=== PATIENT | female | born 2005 | race Caucasian/White ===

== ENCOUNTER 2023-09-12 13:40 | Emergency (ER) | payer SELFPAY ==
[2023-09-12 13:41] VITALS: BP 119/75; PULSE 85; RESP 18; TEMP 36.8; O2SAT 100; BMI 22.3
--- NOTE | 2023-09-12 13:47 | ED_ITS ---
Discharge Plan Disposition Patient Disposition: Home, Self-Care Condition: Good Referrals Follow up/Referrals: Jessica Roman [Primary Care Provider] - See instructions Activity Restrictions/Add. Instructions Additional Instructions/Restrictions: Take tylenol or ibuprofen for pain or fever. Follow up with your regular doctor for a recheck within the next 48 to 72 hours. GO TO THE ER FOR ANY WORSENING SYMPTOMS Clinical Impressions Clinical Impression: Facial trauma, Closed head injury Instructions Patient Instructions: DI for Closed Head Injury Discharge ED Provider: Roland Saab [facility] General Stated complaint: AO 09/10 hit on left jaw with ball Time Seen by Provider: 09/12/23 13:47 History of Present Illness Provider Complaint: She states that she was hit by a softball on her left jaw yesterday. The ball was moving very fast. She states that since then she has had left jaw pain. She denies any loss of consciousness. She states that it does to hurt to open and close her mouth, but she denies any popping of her jaw. She denies any injury to her teeth. She denies any neck pain. Related Data Allergies Allergy/AdvReac Type Severity Reaction Status Date / Time No Known Allergies Allergy Verified 09/12/23 14:02 [facility] Disclaimer: The information contained in this section may have been updated after the patient was seen, as this information can be updated by other users. Social History Smoking Status: Never smoker alcohol intake: never current occupational status: other Travel in the last 8 weeks: None ROS Obtained: Yes All systems reviewed & no additional complaints except as documented Constitutional Constitutional: Denies chills, Denies fever(s) and Denies headache(s) Eyes Eyes: Denies eye discharge ENT Ears, Nose, Mouth, and Throat: Denies dizziness, Denies otalgia, Denies headache(s), Denies neck pain, Denies sore throat and Denies vertigo Cardiovascular Cardiovascular: Denies chest pain and Denies syncope Respiratory Respiratory: Denies shortness of breath, Denies chest congestion, Denies cough, Denies stridor and Denies wheezing Gastrointestinal Gastrointestingal: Denies nausea or vomiting Musculoskeletal Musculoskeletal: Reports system reviewed and no additional complaints, except as documented, Denies arthralgias, Denies back pain, Denies deformity and Denies neck pain Integumentary/Breasts Skin/Breast: Denies rash Neurologic Neurologic: Denies dizziness, Denies headache(s), Denies paresthesias, Denies syncope and Denies vertigo Allergic/Immunologic Allergic/Immunologic: Denies wheezing Physical Exam General General appearance: alert and in no apparent distress Head Head exam: atraumatic, normocephalic, normal inspection and other (no clicking or popping felt when opening and closing her jaw. ) Eye Eye exam: Present normal appearance, PERRL and EOMI ENT ENT exam: Present normal exam, normal oropharynx, mucous membranes moist, TM's normal bilaterally and normal external ear exam Expanded ENT Exam Nose exam: Absent sinus tenderness Nasal speculum exam: Bilateral: normal Mouth exam: Present normal external inspection and tongue normal; Absent drooling or lip swelling Teeth exam: Present normal inspection; Absent dental caries, fractured tooth #, dental tenderness # or gingival swelling Throat exam: Present normal inspection Neck Neck exam: Present normal inspection, full ROM and trachea midline; Absent tenderness, meningismus or lymphadenopathy Chest Chest inspection: Present normal inspection and symmetric chest wall rise; Absent tenderness Respiratory Respiratory exam: Present normal lung sounds bilaterally; Absent respiratory distress Cardiovascular Cardiovascular exam: Present regular rate and normal rhythm; Absent JVD Abdominal Exam Abdominal exam: Present soft and normal bowel sounds; Absent distention, tender ness or guarding Extremities Exam Extremities exam: Present normal inspection, full ROM and normal capillary refill; Absent calf tenderness Back Exam Back exam: Present normal inspection; Absent tenderness Neurological Exam Neurological exam: Present alert and oriented X3 Psychiatric Psychiatric exam: Present normal affect and normal mood Skin Skin exam: Present warm, dry, intact and normal color Lymphatic Lymphatic Findings: no adenopathy Medical Decision Making Medical Records Medical records reviewed: No I reviewed the patient's medical records. Greg Inquiry Pt receiving controlled substance: No Radiology Data #1: Image(s): Other (facial bones) Image Reviewed: Yes I reviewed the patient's radiology image and Yes I have reviewed radiologist's interpretation Preliminary Findings: Normal/NAD PROCEDURE INFORMATION: Exam: XR Facial Bones, Minimum of 3 Views, Complete Exam date and time: 09/12/2023 2:02 PM Age: 18 years old Clinical indication: Maxilla pain; Additional info: Hit with ball TECHNIQUE: Imaging protocol: XR of the facial bones, minimum of 3 views. Complete exam. Total images: 3 COMPARISON: No relevant prior studies available. FINDINGS: Sinuses: Well aerated. No opacification. Bones/joints: No fracture. Soft tissues: Unremarkable. IMPRESSION: No acute changes. #2: Image(s): Other (mandible) Image Reviewed: Yes I reviewed the patient's radiology image and Yes I have reviewed radiologist's interpretation Preliminary Findings: Normal/NAD and No Fracture Seen PROCEDURE INFORMATION: Exam: XR Bilateral Mandible Exam date and time: 09/12/2023 2:05 PM Age: 18 years old Clinical indication: Maxilla pain; Additional info: Hit with ball TECHNIQUE: Imaging protocol: XR of the bilateral mandible. Views: 4 or more views Total images: 5 COMPARISON: CR Facial Bones 09/12/2023 2:02 PM FINDINGS: Sinuses: Well aerated. No opacification. Bones/joints: No fracture. Soft tissues: Unremarkable. IMPRESSION: No acute changes. Medical Decision Narrative: She refused transfer to the ER for additional imaging
--- NOTE | 2023-09-12 14:01 | XR_ITS ---
PROCEDURE INFORMATION: Exam: XR Facial Bones, Minimum of 3 Views, Complete Exam date and time: 09/12/2023 2:02 PM Age: 18 years old Clinical indication: Maxilla pain; Additional info: Hit with ball TECHNIQUE: Imaging protocol: XR of the facial bones, minimum of 3 views. Complete exam. Total images: 3 COMPARISON: No relevant prior studies available. FINDINGS: Sinuses: Well aerated. No opacification. Bones/joints: No fracture. Soft tissues: Unremarkable. IMPRESSION: No acute changes.
--- NOTE | 2023-09-12 14:02 | XR_ITS ---
PROCEDURE INFORMATION: Exam: XR Bilateral Mandible Exam date and time: 09/12/2023 2:05 PM Age: 18 years old Clinical indication: Maxilla pain; Additional info: Hit with ball TECHNIQUE: Imaging protocol: XR of the bilateral mandible. Views: 4 or more views Total images: 5 COMPARISON: CR Facial Bones 09/12/2023 2:02 PM FINDINGS: Sinuses: Well aerated. No opacification. Bones/joints: No fracture. Soft tissues: Unremarkable. IMPRESSION: No acute changes.
[2023-09-12 15:19] VITALS: BP 119/75; PULSE 85; RESP 18; TEMP 36.8; O2SAT 100
== END 2023-09-12 15:19 | disposition home or self-care (01) ==
PROVIDERS: Emergency Provider Nurse Practitioner Family; PCP Nurse Practitioner Family
DX: S09.8XXA Other specified injuries of head, initial encounter (principal); S09.93XA Unspecified injury of face, initial encounter; W21.07XA Struck by softball, initial encounter; Y93.69 Activity, other involving other sports and athletics played as a team or group
CPT/HCPCS: 70110; 70150; 99204; 99212; G0463